=== PATIENT | male | born 2005 | race Caucasian/White ===

== ENCOUNTER 2025-02-04 12:26 | Emergency (ER) | payer BC, SELFPAY ==
--- NOTE | ~2025-02-04 | XR_ITS ---
EXAMINATION: XR hand LT min 3V, 02/04/2025 13:01 CDT HISTORY: pain, snuffbox region, hockey injury 2 weeks ago, no surg COMPARISON: No comparisons available. Findings: No acute fracture or malalignment. No significant degenerative changes. Soft tissues unremarkable. Impression: No acute fracture or malalignment. Reviewed, dictated and finalized at location P. Impression: No acute fracture or malalignment.
[2025-02-04 12:39] VITALS: BP 127/76; PULSE 56; RESP 16; TEMP 36.6; O2SAT 100
--- NOTE | 2025-02-04 13:32 | ED.GENADULT ---
HPI - General Adult General Chief complaint: Extremity Injury, Upper Stated complaint: L hand pain Source: patient Mode of arrival: ambulatory Limitations: no limitations History of Present Illness HPI narrative: Pt is a R. hand dominant 19 y/o male presenting with c/o L. hand pain s/p fall while playing hockey 2 weeks ago. He reports pain to the dorsal aspect of the R hand, immediately distal to the R. wrist. No paresthesias. NO tx initiated [facility]. NO additional complaints. Related Data Home Medications ?Medication ?Instructions ?Recorded ?Confirmed ?Last Taken ?Type No Home Medications 02/04/25 02/04/25 Unknown History Allergies Allergy/AdvReac Type Severity Reaction Status Date / Time No Known Allergies Allergy Verified 02/04/25 12:44 Review of Systems Review of Systems: CONSTITUTIONAL: Denies body aches, fever, chills, or sweats. EYES: Denies visual changes, redness, or discharge. ENT: Denies rhinorrhea, congestion, sore throat, or otalgia. CARDIOVASCULAR: Denies chest pain, palpitations, or edema. RESPIRATORY: Denies cough or dyspnea. GASTROINTESTINAL: Denies abdominal pain, nausea, vomiting, or diarrhea. GENITOURINARY: Denies dysuria or hematuria. SKIN: Denies rash, itching, or wounds. MUSCULOSKELETAL: Reports left hand pain Denies back pain NEUROLOGIC: Denies headache, numbness, tingling, or weakness. PSYCH: Denies depression or anxiety. All systems reviewed & are unremarkable except as noted in HPI and below Exam Narrative: GENERAL: Well-appearing, well-nourished, and in no acute distress. HEAD: Normocephalic, atraumatic. EYES: EOMI. No redness or drainage. Conjunctivae normal. ENT: Mucous membranes pink and moist. NECK: Normal AROM. Supple. CHEST: No respiratory distress. HEART: Regular rate. Normal peripheral pulses. EXTREMITIES: Normal range of motion. No edema. SKIN: Warm, dry, no rash. Capillary refill normal. Normal skin turgor. NEURO: No focal deficits. Alert and oriented x3. Gait steady. PSYCH: Normal affect. No signs of depression or anxiety. Skin: Full body images:  1. mildly TTP, no erythema, edema, ecchymosis, open wounds.+PMS Course Course Level of Care: Express Care Visit Vital Signs Vital signs: Vital Signs Temperature 97.9 F 02/04/25 12:39 Pulse Rate 56 L 02/04/25 12:39 Respiratory Rate 16 02/04/25 12:39 Blood Pressure 127/76 02/04/25 12:39 Pulse Oximetry 100 02/04/25 12:39 Temperature 97.9 F 02/04/25 12:39 Pulse Rate 56 L 02/04/25 12:39 Respiratory Rate 16 02/04/25 12:39 Blood Pressure 127/76 02/04/25 12:39 Pulse Oximetry 100 02/04/25 12:39 Medical Decision Making Vital Signs Vital Signs: Vital Signs Temperature 97.9 F 02/04/25 12:39 Pulse Rate 56 L 02/04/25 12:39 Respiratory Rate 16 02/04/25 12:39 Blood Pressure 127/76 02/04/25 12:39 Pulse Oximetry 100 02/04/25 12:39 Temperature 97.9 F 02/04/25 12:39 Pulse Rate 56 L 02/04/25 12:39 Respiratory Rate 16 02/04/25 12:39 Blood Pressure 127/76 02/04/25 12:39 Pulse Oximetry 100 02/04/25 12:39 Imaging Data Attestation: I personally reviewed and interpreted this imaging study as follows: My impression: [facility] Radiologist's impression: NAF Discharge Plan Discharge Clinical Impression: Hand pain, left Patient Disposition: Home Condition: Stable Instructions: Hand Sprain (ED) Additional Instructions: Go straight to ER should your symptoms become worse or should any new symptoms develop Patient Language: [place] Prescriptions: No Action No Home Medications Follow-up/Referrals: UNKNOWN,DOCTOR [Primary Care Provider] - 02/05/25 Time of Disposition: 13:24
== END 2025-02-04 13:25 | disposition home or self-care (01) ==
PROVIDERS: Emergency Provider Registered Nurse
DX: M79.642 Pain in left hand (principal)
CPT/HCPCS: 73130; 99203; G0463